=== PATIENT | female | born 1995 | race Caucasian/White ===

== ENCOUNTER 2017-02-17 21:16 | Emergency (ER) | payer BC ==
[2017-02-17] MEDS ORDERED: ACETAMINOPHEN 325 MG TABLET PO ONE (22:48)
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
[2017-02-17] MEDS ORDERED: AMOXICILLIN TR/POT CLAVULANATE 500-125 MG TAB PO ONE (23:42)
[2017-02-17 23:52] VITALS: BP 122/86
== END 2017-02-17 23:53 | disposition home or self-care (01) ==
LOC: ER 21:16
DX: S60.311A Abrasion of right thumb, initial encounter (principal); W51.XXXA Accidental striking against or bumped into by another person, initial encounter; Y92.810 Car as the place of occurrence of the external cause
CPT/HCPCS: 99283